=== PATIENT | male | born 1960 | race Caucasian/White ===

== ENCOUNTER 2016-12-18 09:18 | Emergency (ER) | payer OTHER ==
[~2016-12-18] VITALS: Wt 86.4 kg
[~2016-12-18 09:18] MED LIST: ACET500C5 PO; ALBU8.5H3 INH; ASPI81TA3 PO; ATOR40TA68 PO; BENA10TA48 PO; BUPR300T48 PO; FENO67CA PO; GENT5DRO28 RIGHT EYE; ISOS10TA2 PO; LORA10TA3 PO; METF1000 PO; METO-448 PO; NITR0.4T6 SL
[2016-12-18] MEDS ORDERED: BENZ100C70 PO (10:11)
[2016-12-18] MEDS ORDERED: ACET500C5 PO (10:11)
[2016-12-18] MEDS ORDERED: AZIT250T94 PO (10:11)
[2016-12-18] MEDS ORDERED: CETI10CA PO (10:11)
--- NOTE | 2016-12-18 10:20 | ERD ---
ER Documentation Chief Complaint Date/Time DATE: 12/18/16 TIME: 10:18 Chief Complaint cough, fever, runny nose, bodyaches, sweeney, fatigue HPI Patient is a 56-year-old male with a past medical history of diabetes, hypertension, CAD who presents to the ED with cough, runny nose, tactile fevers , congestion, body aches 1 week. Patient states that his roommate has had similar symptoms at home as well as his mom. Denies abdominal pain, nausea, vomiting or diarrhea. Has taken Tylenol for his symptoms. Denies leg pain or swelling. Denies recent travel or recent surgeries. Denies chest pain, shortness of breath or difficulty breathing. Denies headache or dizziness. No other complaints. ROS All systems reviewed and are negative except as per history of present illness. Medications Home Meds Active Scripts Cetirizine Hcl* (Zyrtec*) 10 Mg Capsule, 10 MG PO DAILY, #30 TAB.CHEW Prov:MARIANA PAREDES PA-C 12/18/16 Benzonatate* (Tessalon Perle*) 100 Mg Capsule, 100 MG PO Q8H Y for COUGH for 14 Days, CAP Prov:MARIANA PAREDES PA-C 12/18/16 Acetaminophen* (Tylophen*) 500 Mg Capsule, 1 CAP PO Q6H Y for PAIN AND OR ELEVATED TEMP, #20 CAP Prov:MARIANA PAREDES PA-C 12/18/16 Azithromycin* (Zithromax*) 250 Mg Tablet, 250 MG PO .ZPACK DIRECTED, #6 TAB TAKE 500 MG (2 TABS) THE FIRST DAY THEN 250 MG (1 TAB) DAYS 2-5 Prov:MARIANA PAREDES PA-C 12/18/16 Gentamicin Sulfate* (Gentafair* Ophth) 0.3% - 5 Ml Drops, 1 DROP RIGHT EYE Q4 for 7 Days, EA Prov:SHERICE SMITH PA-C 06/26/16 Acetaminophen* (Tylophen*) 500 Mg Capsule, 2 CAP PO Q8H Y for PAIN AND OR ELEVATED TEMP, #20 CAP Prov:FREYA LEONARD 04/15/16 Nitroglycerin* (Nitroglycerin* SL) 0.4 Mg Tab.subl, 0.4 MG SL Q5MIN Y for CHEST PAIN for 30 Days, BOTTLE Prov:HARSHAD DUMONT MD 05/04/15 Atorvastatin* (Atorvastatin*) 40 Mg Tablet, 40 MG PO HS for 30 Days, TAB Prov:HARSHAD DUMONT MD 05/04/15 Benazepril Hcl* (Benazepril Hcl*) 10 Mg Tab, 10 MG PO BID for 30 Days, TAB Prov:HARSHAD DUMONT MD 05/04/15 Isosorbide Dinitrate* (Isordil*) 10 Mg Tab, 10 MG PO TID for 30 Days, TAB Prov:HARSHAD DUMONT MD 05/04/15 Metoprolol Tartrate* (Lopressor*) 25 Mg Tab, 25 MG PO Q12 for 30 Days, TAB Prov:HARSHAD DUMONT MD 05/04/15 Reported Medications Metformin Hcl* (Metformin Hcl*) 1,000 Mg Tablet, 1000 MG PO BID, TAB 05/03/15 Bupropion Hcl* (Wellbutrin XL*) 300 Mg Tab.sr.24h, 300 MG PO QAM, TAB.SA 05/03/15 Fenofibrate, Micronized (Fenofibrate) 67 Mg Capsule, 67 MG PO DAILY, CAP 05/03/15 Loratadine* (Loratadine*) 10 Mg Tablet, 10 MG PO DAILY, TAB 11/15/14 Aspirin* (Aspirin* Chew) 81 Mg Tab.chew, 81 MG PO DAILY, TAB.CHEW 11/15/14 Albuterol Sulfate* (Proair HFA*) 8.5 Gm Hfa.aer.ad, 2 PUFF INH QID Y for WHEEZING AND SOB, INH 11/15/14 Allergies Allergies: Coded Allergies: ibuprofen (Verified Allergy, Unknown, 01/01/15) PMhx/Soc History of Surgery: Yes (UMBILICAL HERNIA REMOVAL, STENT PLACEMENT) Anesthesia Reaction: No Hx Neurological Disorder: No Hx Respiratory Disorders: Yes (BRONCHITIS) Hx Cardiac Disorders: Yes (CAD, ATHEROSCLEROSIS, HTN, HIGH CHOLESTEROL) Hx Psychiatric Problems: Yes (DEPRESSION, ANXIETY, ANGER MANAGEMENT) Hx Miscellaneous Medical Probl: No Hx Alcohol Use: Yes (JUNE 2014) Hx Substance Use: Yes (COCAINE AND [place] 2002) Hx Tobacco Use: Yes (QUIT YEARS AGO, CANNOT RECALL, ABOUT 20 YEARS) Smoking Status: Former smoker Physical Exam Vitals Vital Signs Date Time Temp Pulse Resp B/P Pulse Ox O2 Delivery O2 Flow Rate FiO2 12/18/16 09:24 98.8 75 20 141/83 98 Physical Exam GENERAL: Well-developed, well-nourished male. Appears in no acute distress. HEAD: Normocephalic, atraumatic. EYES: Pupils are equally reactive bilaterally. EOMs grossly intact. No conjunctival erythema. ENT: Moist mucous membranes. No uvula deviation. No kissing tonsils. No exudates. NECK: Supple. No lymphadenopathy or thyromegaly. No meningismus. negative kernig. negative brudinski. LUNG: Clear to auscultation bilaterally. No rhonchi, wheezing, rales or coarse breath sounds. HEART: Regular rate and rhythm. No murmurs, rubs or gallops. Extremities: Equal pulses bilaterally. No peripheral clubbing, cyanosis or edema. No unilateral leg swelling. Negative Homans sign NEUROLOGIC: Alert and oriented. Moving all four extremities. 5/5 strength in all extremities. Normal speech. Steady gait. SKIN: Normal color. Warm and dry. No rashes or lesions. Capillary refill < 2 seconds Procedures/MDM ER COURSE: I kept the patient and/or family informed of laboratory and diagnostic imaging results throughout the emergency room course. MEDICAL DECISION MAKING: This is a 56-year-old male with a past medical history of diabetes, hypertension , CAD who presents with cough, runny nose, congestion and body aches 1 week. Vital signs were reviewed. Patient is afebrile. Patient is not hypoxic. Patient is not toxic or ill-appearing. Patient likely has URI of viral etiology however due to his extensive past medical history I will be treating the patient with azithromycin. Low suspicion for pneumonia, PE, pneumothorax, ACS, epiglottitis, obstruction, TB, pertussis, meningitis, sepsis. Patient does not show signs of respiratory distress. DISCHARGE: At this time, patient is stable for discharge and outpatient management with no new complaints during the ER course. Patient was sent home with azithromycin, Tylenol for pain, Tessalon Perles for cough and Zyrtec. Patient will be discharged home with instructions to recheck for new or worsening symptoms such as fever, nausea, weakness, LOC and to follow up with primary care in the next 1 -2 days. Patient was advised to return to the ER for any new or worsening symptoms. Plan was discussed and patient and/or family understands and agrees. Home instructions were given. Departure Diagnosis: Primary Impression: Upper respiratory infection URI type: unspecified URI Qualified Code: J06.9 - Upper respiratory tract infection, unspecified type Condition: Stable Patient Instructions: Preventing Common Respiratory Infections Additional Instructions: Call your primary care doctor TOMORROW for an appointment during the next 1-2 days.See the doctor sooner or return here if your condition worsens before your appointment time. MARIANA PAREDES PA-C Dec 18, 2016 10:20
== END 2016-12-18 10:20 | disposition home or self-care (01) ==
LOC: FTE 09:18
DX: J06.9 Acute upper respiratory infection, unspecified (principal); I10 Essential (primary) hypertension; E11.9 Type 2 diabetes mellitus without complications; I25.10 Atherosclerotic heart disease of native coronary artery without angina pectoris; Z79.82 Long term (current) use of aspirin; Z79.84 Long term (current) use of oral hypoglycemic drugs; Z87.891 Personal history of nicotine dependence
CPT/HCPCS: 99284

== ENCOUNTER 2017-06-30 10:30 | Emergency (ER) | payer OTHER ==
[~2017-06-30] VITALS: Ht 170.2 cm; Wt 93.5 kg
[~2017-06-30 10:30] MED LIST changes: +AZIT250T94 PO; +BENZ100C70 PO; +CETI10CA PO; +NITR0.4T32 SL; -NITR0.4T6 SL
[2017-06-30 10:54] VITALS: Ht 170.2 cm; Wt 93.5 kg
[2017-06-30] MEDS ORDERED: ONDANSETRON 4 MG INJ IV STA (11:22)
[2017-06-30] MEDS ORDERED: SOD CHLORIDE 0.9% 500 ML IV STA (11:22)
[2017-06-30] MEDS ORDERED: HYDROmorphONE 1 MG/ML SYG IV STA (11:22)
--- NOTE | 2017-06-30 12:06 | RADRPT ---
PROCEDURE: CT Abdomen and Pelvis without contrast CLINICAL INDICATION: Hematuria and pain extending the pelvic area history of stones TECHNIQUE: Transaxial images were obtained through the abdomen and pelvis on a multi-slice scanner without the intravenous contrast administration. No oral contrast had previously been given. Sagit norbert and coronal re-formations were subsequently reconstructed. One or more of the following dose reduction techniques were used: - Automated exposure control. - Adjustment of the mA and/or kV according to patient size. - Use of iterative reconstruction technique. Radiation dose: CTDIvol = 46.82 mGy; DLP = 1442.71 mGy-cm. COMPARISON: No prior studies are available for comparison. FINDINGS: Lung bases: The visualized lung bases appear unremarkable. Liver: The liver has become mildly enlarged. Too small calcified granulomata are again seen within t he anterior right lobe. No other focal lesion is evident. Gallbladder: The wall is not thickened. No radiopaque stones are identified. Bile ducts: The intra and extrahepatic bile ducts are normal in caliber. Pancreas: Appears normal with no mass or inflammation evident. Spleen: Normal in size with no focal lesion. Adrenals: Normal with no mass identified. Kidneys, ureters and bladder: A 2 mm nonobstructing nephrolith is seen at the superior pole of the r ight kidney. The other nonobstructing nephrolith seen at the previous study are no longer identified . There is mild perinephric stranding but there is no evidence of right urinary outflow obstruction and the right ureter appears normal. Within the left kidney, a 4 mm nonobstructing nephrolith is see n within the superior pole, a 1 mm nonobstructing nephrolith is seen in the mid pole and too nonobst ructing nephroliths are seen within the inferior pole the largest of which measures 4.5 mm. There is mild perinephric stranding but no mass or hydronephrosis is evident. The left ureter appears normal . Within the right posterior bladder a 5 mm stone is now evident. This lies near the ureterovesicula r junction and either represents a stone that has passed into the bladder or possibly a nonobstructi ng stone in a distal right ureterocele. This was not evident previously. Reproductive organs: The prostate is not grossly enlarged but contains calcification. Stomach and bowel: The stomach appears unremarkable. There are a few diverticuli within the sigmoid colon but there is no evidence of bowel obstruction or inflammation. Appendix: A normal vermiform appendix is evident. Peritoneum: No free intraperitoneal fluid or air is identified. There are again small fat containing inguinal hernias. Aorta: Normal in caliber with no aneurysmal dilatation. IVC: The vena cava appears slightly flattened which can be seen in hypovolemia or hypotension. Lymph nodes: No pathologically enlarged nodes are identified. Osseous structures: Moderate diffuse degenerative spine changes are again noted. There is bilateral spondylolysis at L5 not associated with significant spondylolisthesis. IMPRESSION: 1. Since the previous CT of 04/15/2016, there are is again bilateral nephrolithiasis, decreased on the right and slightly increased on the left. There is mild perinephric stranding but there is no ev idence of urinary outflow obstruction or ureteral dilatation. There is a new 5 mm calcification seen within the right posterior bladder near the right ureterovesicular junction that either represents a stone that is passed into the bladder or possibly a nonobstructing stone within a right ureterocel e. 2. There are a few diverticuli within the sigmoid colon but there is no evidence of bowel obstructi on or inflammation with a normal vermiform appendix evident. 3. There is no free intraperitoneal fluid or air. Small bilateral fat containing inguinal hernias a re again evident. 4. The liver is mildly enlarged and to calcified granulomata are again seen within the right lobe. 5. Moderate diffuse degenerative spine changes are again evident with bilateral spondylolysis at L5 . Physician Jose Date Time Electronically viewed and signed by Physician Jose on 06/30/2017 12:06 /
[2017-06-30 12:12] LABS: BASOPHILS % 0.7 % (0.0-2.0); EOSINOPHILS # 0.2 10^3/ul (0.0-0.5); EOSINOPHILS % 2.5 % (0.0-7.0); HEMATOCRIT 40.4 % (42.0-52.0); HEMOGLOBIN 13.9 g/dl (14.0-18.0); LYMPHOCYTES # 1.9 10^3/ul (0.8-2.9); LYMPHOCYTES % 31.3 % (15.0-51.0); MEAN CORPUSCULAR HGB CONC 34.4 g/dl (32.0-37.0); MEAN CORPUSCULAR VOLUME 93.1 fl (82.0-101.0); MEAN PLATELET VOLUME 10.1 fl (7.4-10.4); MONOCYTE # 0.6 10^3/ul (0.3-0.9); MONOCYTES % 10.7 % (0.0-11.0); NEUTROPHIL # 3.2 10^3/ul (1.6-7.5); NEUTROPHILS % 54.1 % (39.0-77.0); PLATELET COUNT 174 10^3/UL (140-415); RED BLOOD COUNT 4.34 10^6/ul (4.70-6.10); RED CELL DISTRIBUTION WIDTH 13.6 % (11.5-14.5); WHITE BLOOD COUNT 5.9 10^3/ul (4.8-10.8)
[2017-06-30 12:35] LABS: ALBUMIN 4.2 g/dl (3.3-4.9); ALBUMIN/GLOBULIN RATIO 1.44; BILIRUBIN,INDIRECT 0.3 mg/dl (0-1.1); BILIRUBIN,TOTAL 0.3 mg/dl (0.2-1.3); CALCIUM 9.1 mg/dl (8.4-10.2); CREATININE 0.92 mg/dl (0.61-1.24); POTASSIUM 4.5 mmol/L (3.5-5.1); TOTAL PROTEIN 7.1 g/dl (6.1-8.1)
[2017-06-30] MEDS ORDERED: CIPR500T4 PO (14:32)
[2017-06-30] MEDS ORDERED: HYDR-902 PO (14:32)
[2017-06-30] MEDS ORDERED: TAMS-14 PO (14:32)
--- NOTE | 2017-06-30 14:39 | ERD ---
ER Documentation Chief Complaint Chief Complaint AP X1 WK, BLOOD IN URINE [id number] HPI This is a 57 show male with a history of multiple kidney stones complain of the kidney stone pain has had in the past which is left flank pain in the left lower quadrant. The pain is often on an intermittent for the past 6 days. The patient says it feels like his kidney stones. He has had off-and-on hematuria but no fever no dysuria no nausea vomiting fever. ROS All systems reviewed and are negative except as per history of present illness. Medications Home Meds Active Scripts Hydrocodone/Acetaminophen ([place] 10-325 Tablet) 1 Each Tablet, 1 TAB PO Q6H Y for PAIN, #20 TAB Prov:FLOWER GOMESSTOLOS A. DO 06/30/17 Tamsulosin Hcl* (Flomax*) 0.4 Mg Cap.er.24h, 0.4 MG PO QPM, #7 CAP Prov:FLOWER GOMESSTOLOS A. DO 06/30/17 Ciprofloxacin Hcl* (Ciprofloxacin Hcl*) 500 Mg Tablet, 500 MG PO BID for 10 Days , TAB Prov:FLOWER GOMESSTOLOS A. DO 06/30/17 Cetirizine Hcl* (Zyrtec*) 10 Mg Capsule, 10 MG PO DAILY, #30 TAB.CHEW Prov:MARIANA PAREDES PA-C 12/18/16 Benzonatate* (Tessalon Perle*) 100 Mg Capsule, 100 MG PO Q8H Y for COUGH for 14 Days, CAP Prov:MARIANA PAREDES-C 12/18/16 Acetaminophen* (Tylophen*) 500 Mg Capsule, 1 CAP PO Q6H Y for PAIN AND OR ELEVATED TEMP, #20 CAP Prov:MARIANA PAREDES-C 12/18/16 Azithromycin* (Zithromax*) 250 Mg Tablet, 250 MG PO .KaitlinPACK DIRECTED, #6 TAB TAKE 500 MG (2 TABS) THE FIRST DAY THEN 250 MG (1 TAB) DAYS 2-5 Prov:MARIANA PAREDES-C 12/18/16 Gentamicin Sulfate* (Gentafair* Ophth) 0.3% - 5 Ml Drops, 1 DROP RIGHT EYE Q4 for 7 Days, EA Prov:SHERICE SMITH PA-C 06/26/16 Acetaminophen* (Tylophen*) 500 Mg Capsule, 2 CAP PO Q8H Y for PAIN AND OR ELEVATED TEMP, #20 CAP Prov:FREYA LEONARD 04/15/16 Nitroglycerin* (Nitroglycerin* SL) 0.4 Mg Tab.subl, 0.4 MG SL Q5MIN Y for CHEST PAIN for 30 Days, BOTTLE Prov:HARSHAD DUMONT MD 05/04/15 Atorvastatin* (Atorvastatin*) 40 Mg Tablet, 40 MG PO HS for 30 Days, TAB Prov:HARSHAD DUMONT MD 05/04/15 Benazepril Hcl* (Benazepril Hcl*) 10 Mg Tab, 10 MG PO BID for 30 Days, TAB Prov:HARSHAD DUMONT MD 05/04/15 Isosorbide Dinitrate* (Isordil*) 10 Mg Tab, 10 MG PO TID for 30 Days, TAB Prov:HARSHAD DUMONT MD 05/04/15 Metoprolol Tartrate* (Lopressor*) 25 Mg Tab, 25 MG PO Q12 for 30 Days, TAB Prov:HARSHAD DUMONT MD 05/04/15 Reported Medications Metformin Hcl* (Metformin Hcl*) 1,000 Mg Tablet, 1000 MG PO BID, TAB 05/03/15 Bupropion Hcl* (Wellbutrin XL*) 300 Mg Tab.sr.24h, 300 MG PO QAM, TAB.SA 05/03/15 Fenofibrate, Micronized (Fenofibrate) 67 Mg Capsule, 67 MG PO DAILY, CAP 05/03/15 Loratadine* (Loratadine*) 10 Mg Tablet, 10 MG PO DAILY, TAB 11/15/14 Aspirin* (Aspirin* Chew) 81 Mg Tab.chew, 81 MG PO DAILY, TAB.CHEW 11/15/14 Albuterol Sulfate* (Proair HFA*) 8.5 Gm Hfa.aer.ad, 2 PUFF INH QID Y for WHEEZING AND SOB, INH 11/15/14 Allergies Allergies: Coded Allergies: ibuprofen (Verified Allergy, Unknown, 01/01/15) PMhx/Soc History of Surgery: Yes (UMBILICAL HERNIA REMOVAL, STENT PLACEMENT) Anesthesia Reaction: No Hx Neurological Disorder: No Hx Respiratory Disorders: Yes (BRONCHITIS) Hx Cardiac Disorders: Yes (CAD, ATHEROSCLEROSIS, HTN, HIGH CHOLESTEROL) Hx Psychiatric Problems: Yes (DEPRESSION, ANXIETY, ANGER MANAGEMENT) Hx Miscellaneous Medical Probl: No Hx Alcohol Use: No Hx Substance Use: No Hx Tobacco Use: Yes (QUIT YEARS AGO, CANNOT RECALL, ABOUT 20 YEARS) Smoking Status: Former smoker FmHx Family History: No coronary disease Physical Exam Vitals Vital Signs Date Time Temp Pulse Resp B/P Pulse Ox O2 Delivery O2 Flow Rate FiO2 06/30/17 10:54 98.7 70 18 142/81 97 Physical Exam Const: Well-developed, well-nourished Head: Atraumatic, normocephalic Eyes: Normal Conjunctiva, PERRLA, EOMI, normal sclera, no nystagmus ENT: Normal External Ears, Nose and Mouth, moist mucus membranes. Neck: Full range of motion. No meningismus, no lymphadenopathy. Resp: Clear to auscultation bilaterally, no wheezing, rhonchi, rales Cardio: Regular rate and rhythm, no murmurs, S1 S2 present Abd: Soft, non tender x 4, non distended. Normal bowel sounds, no guarding or rebound, no pulsitile abdominal masses or bruits Skin: No petechiae or rashes, no ecchymosis , no maculopapular rash Back: Mild left flank tenderness Ext: No cyanosis, or edema, FROM x 4, normal inspection, neurovascularly intact x 4 Neur: Awake and alert, STR 5/5 x 4, sensation intact x 4, no focal findings, cerebellum intact Psych: Normal Mood and Affect Result Diagram: 06/30/17 1200 06/30/17 1200 Results 24 hrs Laboratory Tests Test 06/30/17 12:00 White Blood Count 5.910^3/ul Red Blood Count 4.3410^6/ul Hemoglobin 13.9g/dl Hematocrit 40.4% Mean Corpuscular Volume 93.1fl Mean Corpuscular Hemoglobin 32.0pg Mean Corpuscular Hemoglobin Concent 34.4g/dl Red Cell Distribution Width 13.6% Platelet Count 94459^3/UL Mean Platelet Volume 10.1fl Neutrophils % 54.1% Lymphocytes % 31.3% Monocytes % 10.7% Eosinophils % 2.5% Basophils % 0.7% Nucleated Red Blood Cells % 0.0/100WBC Neutrophils # 3.210^3/ul Lymphocytes # 1.910^3/ul Monocytes # 0.610^3/ul Eosinophils # 0.210^3/ul Basophils # 0.010^3/ul Nucleated Red Blood Cells # 0.010^3/ul Sodium Level 144mmol/L Potassium Level 4.5mmol/L Chloride Level 109mmol/L Carbon Dioxide Level 25mmol/L Anion Gap 15 Blood Urea Nitrogen 14mg/dl Creatinine 0.92mg/dl Glucose Level 130mg/dl Calcium Level 9.1mg/dl Total Bilirubin 0.3mg/dl Direct Bilirubin 0.00mg/dl Indirect Bilirubin 0.3mg/dl Aspartate Amino Transf (AST/SGOT) 40IU/L Alanine Aminotransferase (ALT/SGPT) 60IU/L Alkaline Phosphatase 79IU/L Total Protein 7.1g/dl Albumin 4.2g/dl Globulin 2.90g/dl Albumin/Globulin Ratio 1.44 Current Medications Medications (Trade) Dose Ordered Sig/Chong Route PRN Reason Start Time Stop Time Status Last Admin Dose Admin Sodium Chloride (NS) 500 ml @ 500 mls/hr Q1H STAT IV 06/30/17 11:22 06/30/17 12:21 DC 06/30/17 12:13 Hydromorphone HCl (Dilaudid) 1 mg ONCE STAT IV 06/30/17 11:22 06/30/17 11:28 DC 06/30/17 12:13 Ondansetron HCl (Zofran Inj) 4 mg ONCE STAT IV 06/30/17 11:22 06/30/17 11:28 DC 06/30/17 12:13 Procedures/MDM PROCEDURE: CT Abdomen and Pelvis without contrast CLINICAL INDICATION: Hematuria and pain extending the pelvic area history of stones TECHNIQUE: Transaxial images were obtained through the abdomen and pelvis on a multi-slice scanner without the intravenous contrast administration. No oral contrast had previously been given. Sagittal and coronal re-formations were subsequently reconstructed. One or more of the following dose reduction techniques were used: - Automated exposure control. - Adjustment of the mA and/or kV according to patient size. - Use of iterative reconstruction technique. Radiation dose: CTDIvol = 46.82 mGy; DLP = 1442.71 mGy-cm. COMPARISON: No prior studies are available for comparison. FINDINGS: Lung bases: The visualized lung bases appear unremarkable. Liver: The liver has become mildly enlarged. Too small calcified granulomata are again seen within the anterior right lobe. No other focal lesion is evident. Gallbladder: The wall is not thickened. No radiopaque stones are identified. Bile ducts: The intra and extrahepatic bile ducts are normal in caliber. Pancreas: Appears normal with no mass or inflammation evident. Spleen: Normal in size with no focal lesion. Adrenals: Normal with no mass identified. Kidneys, ureters and bladder: A 2 mm nonobstructing nephrolith is seen at the superior pole of the right kidney. The other nonobstructing nephrolith seen at the previous study are no longer identified. There is mild perinephric stranding but there is no evidence of right urinary outflow obstruction and the right ureter appears normal. Within the left kidney, a 4 mm nonobstructing nephrolith is seen within the superior pole, a 1 mm nonobstructing nephrolith is seen in the mid pole and too nonobstructing nephroliths are seen within the inferior pole the largest of which measures 4.5 mm. There is mild perinephric stranding but no mass or hydronephrosis is evident. The left ureter appears normal. Within the right posterior bladder a 5 mm stone is now evident. This lies near the ureterovesicular junction and either represents a stone that has passed into the bladder or possibly a nonobstructing stone in a distal right ureterocele. This was not evident previously. Reproductive organs: The prostate is not grossly enlarged but contains calcification. Stomach and bowel: The stomach appears unremarkable. There are a few diverticuli within the sigmoid colon but there is no evidence of bowel obstruction or inflammation. Appendix: A normal vermiform appendix is evident. Peritoneum: No free intraperitoneal fluid or air is identified. There are again small fat containing inguinal hernias. Aorta: Normal in caliber with no aneurysmal dilatation. IVC: The vena cava appears slightly flattened which can be seen in hypovolemia or hypotension. Lymph nodes: No pathologically enlarged nodes are identified. Osseous structures: Moderate diffuse degenerative spine changes are again noted. There is bilateral spondylolysis at L5 not associated with significant spondylolisthesis. IMPRESSION: 1. Since the previous CT of 04/15/2016, there are is again bilateral nephrolithiasis, decreased on the right and slightly increased on the left. There is mild perinephric stranding but there is no evidence of urinary outflow obstruction or ureteral dilatation. There is a new 5 mm calcification seen within the right posterior bladder near the right ureterovesicular junction that either represents a stone that is passed into the bladder or possibly a nonobstructing stone within a right ureterocele. 2. There are a few diverticuli within the sigmoid colon but there is no evidence of bowel obstruction or inflammation with a normal vermiform appendix evident. 3. There is no free intraperitoneal fluid or air. Small bilateral fat containing inguinal hernias are again evident. 4. The liver is mildly enlarged and to calcified granulomata are again seen within the right lobe. 5. Moderate diffuse degenerative spine changes are again evident with bilateral spondylolysis at L5. Physician Jose Date Time Electronically viewed and signed by Physician Jose on 06/30/2017 12:06 RH/ CC: CAMPBELL GOMES DO Patient does not have any acute pathology in the ureters but looks like he may have passed a stone in the bladder. He is pain-free now. We will cover him with Cipro Flomax and pain control. Departure Diagnosis: Primary Impression: Kidney stone Condition: Stable Patient Instructions: Kidney Carolina Brooks APOSTOLOS A. DO Jun 30, 2017 14:39
[2017-06-30 14:48] VITALS: BP 138/80; PULSE 77; RESP 18
[2017-06-30 15:20] LABS: ADD UMIC YES; UR ASCORBIC ACID NEGATIVE (NEGATIVE); UR BILIRUBIN (Dip) NEGATIVE (NEGATIVE); UR BLOOD (Dip) 3+ mg/dL (NEGATIVE); UR CLARITY CLEAR (CLEAR); UR COLOR YELLOW (YELLOW); UR GLUCOSE (Dip) 1+ mg/dL (NEGATIVE); UR KETONES (Dip) NEGATIVE (NEGATIVE); UR LEUKOCYTE ESTERASE (Dip) NEGATIVE Leu/ul (NEGATIVE); UR NITRITE (Dip) NEGATIVE (NEGATIVE); UR RBC 122 /HPF (0-5); UR SPECIFIC GRAVITY (Dip) 1.016 (1.003-1.030); UR TOTAL PROTEIN (Dip) NEGATIVE (NEGATIVE); UR UROBILINOGEN (Dip) NEGATIVE (NEGATIVE)
== END 2017-06-30 14:51 | disposition home or self-care (01) ==
LOC: E/R 10:30
DX: N20.0 Calculus of kidney (principal); I25.10 Atherosclerotic heart disease of native coronary artery without angina pectoris; I10 Essential (primary) hypertension; Z79.82 Long term (current) use of aspirin; Z79.84 Long term (current) use of oral hypoglycemic drugs; Z87.891 Personal history of nicotine dependence; Z98.61 Coronary angioplasty status
CPT/HCPCS: 36415; 74176; 80053; 81001; 85025; 96374; 96375; J1170; J2405; J7040; Z7502

== ENCOUNTER 2017-08-23 10:41 | Emergency (ER) | payer MEDICAID, OTHER ==
[~2017-08-23] VITALS: Ht 172.7 cm; Wt 90.7 kg
[~2017-08-23 10:41] MED LIST changes: +CIPR500T4 PO; +HYDR-902 PO; +TAMS-14 PO
[2017-08-23 10:42] VITALS: Ht 172.7 cm; Wt 90.7 kg
[2017-08-23 14:02] LABS: BASOPHILS % 0.6 % (0.0-2.0); EOSINOPHILS % 0.3 % (0.0-7.0); HEMATOCRIT 43.4 % (42.0-52.0); HEMOGLOBIN 15.2 g/dl (14.0-18.0); LYMPHOCYTES # 1.1 10^3/ul (0.8-2.9); LYMPHOCYTES % 32.7 % (15.0-51.0); MEAN CORPUSCULAR HEMOGLOBIN 32.5 pg (29.0-33.0); MEAN CORPUSCULAR VOLUME 92.7 fl (82.0-101.0); MEAN PLATELET VOLUME 9.6 fl (7.4-10.4); MONOCYTE # 0.5 10^3/ul (0.3-0.9); MONOCYTES % 14.3 % (0.0-11.0); NEUTROPHIL # 1.8 10^3/ul (1.6-7.5); NEUTROPHILS % 51.8 % (39.0-77.0); PLATELET COUNT 174 10^3/UL (140-415); RED BLOOD COUNT 4.68 10^6/ul (4.70-6.10); RED CELL DISTRIBUTION WIDTH 12.6 % (11.5-14.5); WHITE BLOOD COUNT 3.4 10^3/ul (4.8-10.8)
[2017-08-23 14:05] LABS: ADD UMIC NO; UR ASCORBIC ACID 40 mg/dL (NEGATIVE); UR BILIRUBIN (Dip) NEGATIVE (NEGATIVE); UR BLOOD (Dip) NEGATIVE (NEGATIVE); UR CLARITY CLEAR (CLEAR); UR COLOR AMBER (YELLOW); UR GLUCOSE (Dip) 2+ mg/dL (NEGATIVE); UR KETONES (Dip) TRACE mg/dL (NEGATIVE); UR LEUKOCYTE ESTERASE (Dip) NEGATIVE Leu/ul (NEGATIVE); UR NITRITE (Dip) NEGATIVE (NEGATIVE); UR SPECIFIC GRAVITY (Dip) 1.031 (1.003-1.030); UR TOTAL PROTEIN (Dip) NEGATIVE (NEGATIVE); UR UROBILINOGEN (Dip) 1+ mg/dL (NEGATIVE)
[2017-08-23 14:20] LABS: ALBUMIN 4.3 g/dl (3.3-4.9); ALBUMIN/GLOBULIN RATIO 1.22; BILIRUBIN,INDIRECT 0.3 mg/dl (0-1.1); BILIRUBIN,TOTAL 0.3 mg/dl (0.2-1.3); CALCIUM 9.3 mg/dl (8.4-10.2); CREATININE 0.94 mg/dl (0.61-1.24); POTASSIUM 3.8 mmol/L (3.5-5.1); TOTAL PROTEIN 7.8 g/dl (6.1-8.1)
--- NOTE | 2017-08-23 14:31 | RADRPT ---
PROCEDURE: XR Chest. CLINICAL INDICATION: Cough TECHNIQUE: A single portable view of the chest was obtained. COMPARISON: 04/15/2016 FINDINGS: The cardiomediastinal silhouette is within normal limits. The lungs and pleural spaces are clear. The soft tissues and osseous structures are stable. IMPRESSION: No acute cardiopulmonary disease. RPTAT: HPNM Physician Shahla Date Time Electronically viewed and signed by Mingo Manning Physician on 08/23/2017 14:30 /
[2017-08-23] MEDS ORDERED: ACET500C5 PO (14:37)
[2017-08-23] MEDS ORDERED: GUAI-637 PO (14:37)
[2017-08-23] MEDS ORDERED: SODI126M NASAL (14:37)
--- NOTE | 2017-08-23 14:46 | ERD ---
ER Documentation Chief Complaint Chief Complaint fever , cough , bodyache x 3 days HPI 57-year-old male with history of diabetes and hypertension presented ED complaining of subjective fever, cough, runny nose, and body ache 3 days. Cough is nonproductive, worse at night. Patient reports pain in the bilateral lower ribs region when he is taking a deep breath. Patient also reports feeling chills, headache and nausea. Denies abdominal pain, vomiting, or diarrhea. Denies shortness of breath. Denies chest pain. ROS All systems reviewed and are negative except as per history of present illness. Medications Home Meds Active Scripts Guaifenesin* (Robitussin*) 100 Mg/5 Ml Syrup, 200 MG PO Q4H Y for COUGH, #120 ML Prov:TRENT RUBIN. APPLICATION DEVELOPMENT CONSULTANT 08/23/17 Sodium Chloride (Saline Nasal Mist) 126 Ml Mist, 2 SPRAY NASAL Q2H Y for NASAL CONGESTION, #1 BOTTLE Prov:TRENT RUBIN. BABAK 08/23/17 Acetaminophen* (Tylophen*) 500 Mg Capsule, 1 CAP PO Q6H Y for PAIN AND OR ELEVATED TEMP, #20 CAP Prov:TRENT RUBIN NP 08/23/17 Hydrocodone/Acetaminophen (Dane 10-325 Tablet) 1 Each Tablet, 1 TAB PO Q6H Y for PAIN, #20 TAB Prov:CAMPBELL GOMES DO 06/30/17 Tamsulosin Hcl* (Flomax*) 0.4 Mg Cap.er.24h, 0.4 MG PO QPM, #7 CAP Prov:CAMPBELL GOMES DO 06/30/17 Ciprofloxacin Hcl* (Ciprofloxacin Hcl*) 500 Mg Tablet, 500 MG PO BID for 10 Days , TAB Prov:CAMPBELL GOMES DO 06/30/17 Cetirizine Hcl* (Zyrtec*) 10 Mg Capsule, 10 MG PO DAILY, #30 TAB.CHEW Prov:MARIANA PAREDES-C 12/18/16 Benzonatate* (Tessalon Perle*) 100 Mg Capsule, 100 MG PO Q8H Y for COUGH for 14 Days, CAP Prov:MARIANA PAREDES-C 12/18/16 Acetaminophen* (Tylophen*) 500 Mg Capsule, 1 CAP PO Q6H Y for PAIN AND OR ELEVATED TEMP, #20 CAP Prov:MARIANA PAREDESC 12/18/16 Azithromycin* (Zithromax*) 250 Mg Tablet, 250 MG PO .JULIANA DIRECTED, #6 TAB TAKE 500 MG (2 TABS) THE FIRST DAY THEN 250 MG (1 TAB) DAYS 2-5 Prov:MARIANA PAREDESC 12/18/16 Gentamicin Sulfate* (Gentafair* Ophth) 0.3% - 5 Ml Drops, 1 DROP RIGHT EYE Q4 for 7 Days, EA Prov:SHERICE SMITHC 06/26/16 Acetaminophen* (Tylophen*) 500 Mg Capsule, 2 CAP PO Q8H Y for PAIN AND OR ELEVATED TEMP, #20 CAP Prov:FREYA LEONARD 04/15/16 Nitroglycerin* (Nitroglycerin* SL) 0.4 Mg Tab.subl, 0.4 MG SL Q5MIN Y for CHEST PAIN for 30 Days, BOTTLE Prov:HARSHAD DUMONT MD 05/04/15 Atorvastatin* (Atorvastatin*) 40 Mg Tablet, 40 MG PO HS for 30 Days, TAB Prov:HARSHAD DUMONT MD 05/04/15 Benazepril Hcl* (Benazepril Hcl*) 10 Mg Tab, 10 MG PO BID for 30 Days, TAB Prov:HARSHAD DUMONT MD 05/04/15 Isosorbide Dinitrate* (Isordil*) 10 Mg Tab, 10 MG PO TID for 30 Days, TAB Prov:HARSHAD DUMONT MD 05/04/15 Metoprolol Tartrate* (Lopressor*) 25 Mg Tab, 25 MG PO Q12 for 30 Days, TAB Prov:HARSHAD DUMONT MD 05/04/15 Reported Medications Metformin Hcl* (Metformin Hcl*) 1,000 Mg Tablet, 1000 MG PO BID, TAB 05/03/15 Bupropion Hcl* (Wellbutrin XL*) 300 Mg Tab.sr.24h, 300 MG PO QAM, TAB.SA 05/03/15 Fenofibrate, Micronized (Fenofibrate) 67 Mg Capsule, 67 MG PO DAILY, CAP 05/03/15 Loratadine* (Loratadine*) 10 Mg Tablet, 10 MG PO DAILY, TAB 3/10/15 Aspirin* (Aspirin* Chew) 81 Mg Tab.chew, 81 MG PO DAILY, TAB.CHEW 11/15/14 Albuterol Sulfate* (Proair HFA*) 8.5 Gm Hfa.aer.ad, 2 PUFF INH QID Y for WHEEZING AND SOB, INH 11/15/14 Allergies Allergies: Coded Allergies: ibuprofen (Verified Allergy, Unknown, 08/23/17) PMhx/Soc History of Surgery: Yes (UMBILICAL HERNIA REMOVAL, STENT PLACEMENT) Anesthesia Reaction: No Hx Neurological Disorder: No Hx Respiratory Disorders: Yes (BRONCHITIS) Hx Cardiac Disorders: Yes (CAD, ATHEROSCLEROSIS, HTN, HIGH CHOLESTEROL) Hx Psychiatric Problems: Yes (DEPRESSION, ANXIETY, ANGER MANAGEMENT) Hx Miscellaneous Medical Probl: No Hx Alcohol Use: No Hx Substance Use: No Hx Tobacco Use: Yes (QUIT YEARS AGO, CANNOT RECALL, ABOUT 20 YEARS) Smoking Status: Former smoker Physical Exam Vitals Vital Signs Date Time Temp Pulse Resp B/P Pulse Ox O2 Delivery O2 Flow Rate FiO2 08/23/17 10:42 99.8 102 18 119/80 99 Physical Exam General: Well-developed, well-nourished, conscious and coherent, in no distress Skin: Warm and dry without rash, good texture and turgor Head: Normocephalic without evidence of trauma Eyes: Sclera and conjunctivae normal; pupils equal, round, and reactive to light; extraocular movements are intact Nose/Face: Clear rhinorrhea Mouth/throat: Mucous membranes are moist. Posterior pharynx clear without erythema or exudates Neck: Supple without meningismus or adenopathy. Carotids are equal. Trachea midline. No bruits or JVD Chest: Normal AP diameter. Good expansion without retractions. Nontender. Lungs are clear to auscultate bilaterally with good tidal volume Heart: Regular rate and rhythm. No murmur, rub, or gallops heard Abdomen: Soft and nontender without masses, guarding, or rebound. Bowel sounds are active. No hepatosplenomegaly Back: Without spinal or CVA tenderness Pelvis: Nontender to palpation and stable to compression Extremities: Full range of motion. Good strength bilaterally. No clubbing, cyanosis, or edema. Peripheral pulses are intact. Sensation intact Neuro: Alert and oriented 4, GCS 15. Cranial nerves grossly intact. Motor and sensory exams nonfocal. Moves all extremities. Speech clear. Gait normal Result Diagram: 08/23/17 1352 08/23/17 1352 Results 24 hrs Laboratory Tests Test 08/23/17 13:40 08/23/17 13:52 Urine Color JOVITA Urine Clarity CLEAR Urine pH 5.0 Urine Specific [place] 1.031 Urine Ketones TRACEmg/dL Urine Nitrite NEGATIVEmg/dL Urine Bilirubin NEGATIVEmg/dL Urine Urobilinogen 1+mg/dL Urine Leukocyte Esterase NEGATIVELeu/ul Urine Hemoglobin NEGATIVEmg/dL Urine Glucose 2+mg/dL Urine Total Protein NEGATIVEmg/dl White Blood Count 3.410^3/ul Red Blood Count 4.6810^6/ul Hemoglobin 15.2g/dl Hematocrit 43.4% Mean Corpuscular Volume 92.7fl Mean Corpuscular Hemoglobin 32.5pg Mean Corpuscular Hemoglobin Concent 35.0g/dl Red Cell Distribution Width 12.6% Platelet Count 44704^3/UL Mean Platelet Volume 9.6fl Neutrophils % 51.8% Lymphocytes % 32.7% Monocytes % 14.3% Eosinophils % 0.3% Basophils % 0.6% Nucleated Red Blood Cells % 0.0/100WBC Neutrophils # 1.810^3/ul Lymphocytes # 1.110^3/ul Monocytes # 0.510^3/ul Eosinophils # 0.010^3/ul Basophils # 0.010^3/ul Nucleated Red Blood Cells # 0.010^3/ul Sodium Level 138mmol/L Potassium Level 3.8mmol/L Chloride Level 100mmol/L Carbon Dioxide Level 27mmol/L Anion Gap 15 Blood Urea Nitrogen 14mg/dl Creatinine 0.94mg/dl Glucose Level 252mg/dl Calcium Level 9.3mg/dl Total Bilirubin 0.3mg/dl Direct Bilirubin 0.00mg/dl Indirect Bilirubin 0.3mg/dl Aspartate Amino Transf (AST/SGOT) 84IU/L Alanine Aminotransferase (ALT/SGPT) 94IU/L Alkaline Phosphatase 59IU/L Total Protein 7.8g/dl Albumin 4.3g/dl Globulin 3.50g/dl Albumin/Globulin Ratio 1.22 Procedures/MDM 57-year-old male with history of diabetes presented to ED with flulike symptoms. CBC, CMP, and UA are negative except for blood glucose of 252. Patient does not have any abdominal pain or vomiting. Low suspicion for diabetic ketoacidosis. Chest rate is negative for acute cardiopulmonary processes. I doubt pneumonia. Influenza swab negative. Patient is afebrile, in no respiratory distress. Lungs are clear to auscultate. I doubt bronchitis. Likely patient's symptoms are result of viral upper respiratory infection. Patient appears well, stable for discharge and outpatient management. Medical decision making shared with patient and family. Education provided to patient and family. Patient and family expressed understanding of the plan. Medications on discharge: Tylenol, saline nasal spray, Robitussin. Follow-up: Primary care provider in 2-3 days or return to ED if worse. Disclaimer: Inadvertent spelling and grammatical errors are likely due to EHR/ dictation software use and do not reflect on the overall quality of patient care. Also, please note that the electronic time recorded on this note does not necessarily reflect the actual time of the patient encounter. Departure Diagnosis: Primary Impression: Upper respiratory infection URI type: acute nasopharyngitis (common cold) Qualified Code: J00 - Acute nasopharyngitis Condition: Stable Patient Instructions: Kid Care: Colds Referrals: JOHNNA HOPE (PCP) Additional Instructions: Call your primary care doctor TOMORROW for an appointment during the next 2-3 days.See the doctor sooner or return here if your condition worsens before your appointment time. TRENT RUBIN NP Aug 23, 2017 14:46
[2017-08-23 14:50] VITALS: BP 138/86; PULSE 77; RESP 19; TEMP 98.3
== END 2017-08-23 14:51 | disposition home or self-care (01) ==
LOC: FTE 10:41
DX: J00 Acute nasopharyngitis [common cold] (principal); E11.9 Type 2 diabetes mellitus without complications; I10 Essential (primary) hypertension; I25.10 Atherosclerotic heart disease of native coronary artery without angina pectoris; Z79.84 Long term (current) use of oral hypoglycemic drugs; Z98.61 Coronary angioplasty status; Z87.891 Personal history of nicotine dependence; Z79.82 Long term (current) use of aspirin
CPT/HCPCS: 36415; 71010; 80053; 81003; 85025; 87400; Z7502

== ENCOUNTER 2018-03-09 17:19 | Inpatient (IN) | END 2018-03-10 14:30 | disposition home or self-care (01) | DRG 313 ==

== ENCOUNTER 2018-09-03 10:05 | Emergency (ER) | payer MEDICARE, OTHER ==
[~2018-09-03] VITALS: Ht 172.7 cm; Wt 88.7 kg
[~2018-09-03 10:05] MED LIST changes: -ACET500C5 PO; -ALBU8.5H3 INH; -ASPI81TA3 PO; +ATOR-2 PO; -ATOR40TA68 PO; -AZIT250T94 PO; -BENA10TA48 PO; +BENA20TA4 PO; -BENZ100C70 PO; -BUPR300T48 PO; -CETI10CA PO; -CIPR500T4 PO; +FENO134C PO; -FENO67CA PO; +GABA300C16 PO; -GENT5DRO28 RIGHT EYE; -HYDR-902 PO; -ISOS10TA2 PO; -LORA10TA3 PO; -METF1000 PO; +METO-429 PO; -METO-448 PO; +SITA1TAB5 PO; -TAMS-14 PO
[2018-09-03 10:13] VITALS: BP 161/104; PULSE 70; RESP 20; Ht 172.7 cm; Wt 88.7 kg
[2018-09-03] MEDS ORDERED: ACETAMINOPHEN 500 MG TAB PO STA (11:10)
[2018-09-03] MEDS ORDERED: ACET500C5 PO (11:45)
--- NOTE | 2018-09-03 13:39 | ERD ---
ER Documentation Chief Complaint Chief Complaint Complains of back pain x 3 dys HPI 58-year-old male presents with lower back pain which started 5 days ago. Patient denies any history of trauma and states that his back started hurting when he woke up. Patient states that he has some limited range of motion of the back, but is ambulatory. States that he has had some urgency incontinence for the past year, proceeding and a history of back pain. Denies saddle numbness, pain worse at night or when supine, weight loss, night sweats, fatigue, focal neurological defecits, recent bacterial infection, IV drug use, or immunosuppres juan pablo. History of umbilical hernia, coronary artery disease. Allergic to ibuprofen. Denies surgeries. Denies ETOH, drug, or tobacco use. ROS All systems reviewed and are negative except as per history of present illness. Medications Home Meds Active Scripts Acetaminophen* (Tylophen*) 500 Mg Capsule, 1 CAP PO Q6H PRN for PAIN AND OR ELEVATED TEMP, #30 CAP 0 Refills Prov:VLADIMIR MARINO 09/03/18 Reported Medications Nitroglycerin* (Nitroglycerin* SL) 0.4 Mg Tab.subl, 0.4 MG SL Q5MIN PRN for CHEST PAIN, BOTTLE 03/09/18 Sitagliptin Phos/Metformin HCl (Janumet 50-1,000 mg Tablet) 1 Each Tablet, 1 EACH PO BID, TAB 03/09/18 Metoprolol Tartrate* (Lopressor*) 50 Mg Tab, 50 MG PO BID, #60 TAB 03/09/18 Benazepril Hcl* (Benazepril Hcl*) 20 Mg Tablet, 20 MG PO DAILY, #30 TAB 03/09/18 Atorvastatin* (Atorvastatin*) 80 Mg Tablet, 80 MG PO QHS, #30 TAB 03/09/18 Gabapentin* (Gabapentin*) 300 Mg Capsule, 300 MG PO BID, #60 CAP 03/09/18 Fenofibrate, Micronized (Fenofibrate) 134 Mg Capsule, 134 MG PO DAILY, CAP 03/09/18 Allergies Allergies: Coded Allergies: ibuprofen (Verified Allergy, Unknown, 03/09/18) PMhx/Soc History of Surgery: Yes (stent placement, umblical hernia repair ) Anesthesia Reaction: No Hx Neurological Disorder: No Hx Respiratory Disorders: Yes (bronchitis) Hx Cardiac Disorders: Yes ([place] incident stent placement) Hx Psychiatric Problems: Yes (anxiety and depression) Hx Miscellaneous Medical Probl: No Hx Alcohol Use: No Hx Substance Use: No Hx Tobacco Use: No Smoking Status: Never smoker FmHx Family History: No diabetes, No coronary disease, No other Physical Exam Vitals Vital Signs Date Temp Pulse Resp B/P (MAP) Pulse Ox O2 O2 Flow FiO2 Time Delivery Rate 09/03/18 98.6 70 20 161/104 99 10:13 (123) Physical Exam Const: No acute distress Resp: Clear to auscultation bilaterally Cardio: Regular rate and rhythm, no murmurs Back: Limited flexion. Midline TTP of lumbar back. No bony deformities or step offs. No masses, ecchymoses, or lesions noted. Extremeties: Intact sensation and 5/5 strength in lower extremities bilaterally. : Non tender, non enlarged, non boggy prostate, with no indurations. Normal rectal sphincter tone. Neuro: No saddle numbness. Psych: Normal Mood and Affect Result Diagram: 09/03/18 1112 09/03/18 1112 Results 24 hrs Laboratory Tests Test 09/03/18 11:12 White Blood Count 6.8 10^3/ul Red Blood Count 4.86 10^6/ul Hemoglobin 16.0 g/dl Hematocrit 45.0 % Mean Corpuscular Volume 92.6 fl Mean Corpuscular Hemoglobin 32.9 pg Mean Corpuscular Hemoglobin Concent 35.6 g/dl Red Cell Distribution Width 12.5 % Platelet Count 227 10^3/UL Mean Platelet Volume 9.6 fl Immature Granulocytes % 0.400 % Neutrophils % 62.0 % Lymphocytes % 25.3 % Monocytes % 9.3 % Eosinophils % 2.1 % Basophils % 0.9 % Nucleated Red Blood Cells % 0.0 /100WBC Immature Granulocytes # 0.030 10^3/ul Neutrophils # 4.2 10^3/ul Lymphocytes # 1.7 10^3/ul Monocytes # 0.6 10^3/ul Eosinophils # 0.1 10^3/ul Basophils # 0.1 10^3/ul Nucleated Red Blood Cells # 0.0 10^3/ul Urine Color YELLOW Urine Clarity CLEAR Urine pH 5.0 Urine Specific [place] 1.021 Urine Ketones NEGATIVE mg/dL Urine Nitrite NEGATIVE mg/dL Urine Bilirubin NEGATIVE mg/dL Urine Urobilinogen 1+ mg/dL Urine Leukocyte Esterase NEGATIVE Annemarie/ul Urine Hemoglobin NEGATIVE mg/dL Urine Glucose NEGATIVE mg/dL Urine Total Protein NEGATIVE mg/dl Sodium Level 139 mmol/L Potassium Level 4.8 mmol/L Chloride Level 103 mmol/L Carbon Dioxide Level 28 mmol/L Anion Gap 8 Blood Urea Nitrogen 13 mg/dl Creatinine 0.96 mg/dl Est Glomerular Filtrat Rate mL/min > 60 mL/min Glucose Level 157 mg/dl Calcium Level 9.5 mg/dl Total Bilirubin 0.6 mg/dl Direct Bilirubin 0.00 mg/dl Indirect Bilirubin 0.6 mg/dl Aspartate Amino Transf (AST/SGOT) 29 IU/L Alanine Aminotransferase (ALT/SGPT) 31 IU/L Alkaline Phosphatase 81 IU/L Total Protein 7.4 g/dl Albumin 4.4 g/dl Globulin 3.00 g/dl Albumin/Globulin Ratio 1.46 Current Medications Medications Dose Sig/Chong Start Time Status Last (Trade) Ordered Route PRN Stop Time Admin Dose Reason Admin 1,000 mg ONCE STAT 09/03/18 DC 09/03/18 Acetaminophen PO 11:10 11:31 (Tylenol 09/03/18 Tab) 11:13 Procedures/MDM DIAGNOSTIC IMAGING REPORT Patient: SOLEDAD HICKS : 1960 Age: 58 Sex: M MR #: [id number] DOS: 09/03/18 0000 Ordering MD: VLADIMIR MARINO Location: [facility] Room/Bed: PROCEDURE: CT LUMBAR SPINE WITHOUT CONTRAST CLINICAL INDICATION: Lower back pain and incontinence TECHNIQUE: CT scan of the lumbar spine was performed on a multi -slice scanner. No IV contrast was administered. Coronal and sagittal reformatted images were obtained from the axial source images. The total exam DLP equals 573.92 mGy-cm. The CDTI volume was 22.38 mGy. One or more of the following dose reduction techniques were used: - Automated exposure control. - Adjustment of the mA and/or kV according to patient size . - Use of iterative reconstruction technique. Images were reviewed on a high-resolution PACS workstation. COMPARISON: CT 06/30/2017. FINDINGS: Diminutive ribs at T12. Mild right curvature of the lumbar spine. No acute fracture identified. Chronic bilateral L5 pars interarticularis defects. There is a 1.2 cm lytic lesion in the left iliac bone with central sclerosis and overall fat attenuation, present on prior CT representing benign fibro osseous lesion. 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 SI joints demonstrate hypertrophic change with bridging osteophytes anteriorly. Findings at specific disc levels: T12-L1: Borderline mild disc height loss and anterior osteophyte formation. Schmorl's node formation. Minimal facet hypertrophy. No significant spinal canal stenosis or neural foraminal narrowing. L1-L2: Disc height is maintained. Schmorl's node formation. Anterior osteophyte formation. Mild facet hypertrophy. Small annular bulge without significant spinal canal stenosis or neural foraminal narrowing. L2-L3: Less than 2 mm retrolisthesis. Disc height is maintained. Schmorl's node formation. Mild facet hypertrophy. Anterior osteophyte formation. Disc osteophyte complex with mild right neural foraminal narrowing. No definite spinal canal stenosis. L3-L4: 2 mm retrolisthesis. Disc height is maintained. Anterior osteophyte formation. Mild Schmorl's node formation. Mild facet hypertrophy and ligamentum flavum infolding. Broad-based disc bulge with likely mild effacement of the subarticular recesses and borderline mild spinal canal stenosis. Mild bilateral neural foraminal narrowing. L4-L5: Moderate left-sided disc height loss and anterior osteophyte formation. Mild to moderate facet hypertrophy and ligamentum flavum infolding disc osteophyte complex with prominent osteophytic ridging in the left foraminal zone along with facet hypertrophy results in moderate to severe left neural foraminal narrowing. Mild to moderate right neural foraminal narrowing. No significant spinal canal stenosis. L5-S1: 5.5 mm anterolisthesis. Mild to moderate disc height loss and anterior osteophyte formation. Bilateral L5 spondylolysis. Moderate facet arthropathy. Uncovering of the disc/disc osteophyte complex with at least moderate bilateral neural foraminal narrowing. No significant spinal canal stenosis. IMPRESSION: 1. No acute fracture. Multilevel degenerative disc and facet disease and mild right curvature of the lower lumbar spine. 2. 5.5 mm anterolisthesis at L5-S1, chronic bilateral L5 spondylolysis, mo derate facet arthropathy and disc osteophyte complex with at least moderate bilateral neural foraminal narrowing. 3. Mild to moderate facet arthropathy at L4-L5, disc osteophyte complex with prominent osteophytic ridging in the left foraminal zone with moderate to severe left and mild to moderate right neural foraminal narrowing. 4. Borderline mild spinal canal stenosis at L3-L4 and mild bilateral neural foraminal narrowing. 5. Less than 2 mm retrolisthesis at L2-L4. 6. Redemonstration of 1.2 cm left iliac lytic lesion may represent a benign fibro osseous lesion, similar to prior. 7. Additional findings as above. RPTAT: VV Physician Niko Date Time Electronically viewed and signed by Physician Niko on 09/03/2018 13:18 RG/ CC: VLADIMIR MARINO [id number] ER Course: UA, CBC, CMP: All WNL. Lumbar CT showed degenerative disc changes. Tylenol PO MDM: 58-year-old male presents with lower back pain which started 5 days ago. Patient denies any history of trauma and states that his back started hurting when he woke up. Patient states that he has some limited range of motion of the back, but is ambulatory. States that he has had some urgency incontinence for the past year, proceeding and a history of back pain. Denies saddle numbness, pain worse at night or when supine, weight loss, night sweats, fatigue, focal neurological deficits, recent bacterial infection, IV drug use, or immunosuppression. I have low suspicion for cauda equina since patient lacks saddle numbness, has normal rectal tone on physical exam, has normal lower extremity strength, and his urge incontinence preceded his back pain by a year. Lumbar CT confirmed degenerative joint disease of back without any signs of fracture. Patient advised to follow up with ortho and given medication for pain. Patient discharged with strict ER precautions. Patient advised to follow up with PMD. All questions answered at discharge. Departure Diagnosis: Primary Impression: Back pain Back pain location: low back pain Chronicity: acute Back pain laterality: midline Sciatica presence: without sciatica Qualified Codes: M54.5 - Low back pain Condition: Stable Patient Instructions: Back Pain (Acute Or Chronic) Referrals: [facility] YOU HAVE RECEIVED A MEDICAL SCREENING EXAM AND THE RESULTS INDICATE THAT YOU DO NOT HAVE A CONDITION THAT REQUIRES URGENT TREATMENT IN THE EMERGENCY DEPARTMENT. FURTHER EVALUATION AND TREATMENT OF YOUR CONDITION CAN WAIT UNTIL YOU ARE SEEN IN YOUR DOCTORS OFFICE WITHIN THE NEXT 1-2 DAYS. IT IS YOUR RESPONSIBILITY TO MAKE AN APPOINTMENT FOR FOLOW-UP CARE. IF YOU HAVE A PRIMARY DOCTOR --you should call your primary doctor and schedule an appointment IF YOU DO NOT HAVE A PRIMARY DOCTOR YOU CAN CALL OUR PHYSICIAN REFERRAL HOTLINE AT IF YOU CAN NOT AFFORD TO SEE A PHYSICIAN YOU CAN CHOSE FROM THE FOLLOWING [facility] [address] [facility]. [facility] [address] [facility] [facility] [address] [facility] [facility] [address] [facility] [facility] [address] [facility] [facility]. [address] Additional Instructions: FOLLOW UP WITH YOUR PRIMARY CARE PHYSICIAN TOMORROW.Return to this facility if you are not improving as expected. VLADIMIR MARINO Sep 03, 2018 13:39
== END 2018-09-03 13:54 | disposition home or self-care (01) ==
LOC: FTE 10:05
DX: M54.5 Low back pain (principal); I25.2 Old myocardial infarction; Z79.84 Long term (current) use of oral hypoglycemic drugs; Z98.61 Coronary angioplasty status
CPT/HCPCS: 72131; 80053; 81003; 85025

== ENCOUNTER 2018-12-22 10:03 | Emergency (ER) | payer MEDICARE, OTHER ==
[~2018-12-22] VITALS: Ht 170.2 cm; Wt 85.4 kg
[~2018-12-22 10:03] MED LIST changes: +ACET500C5 PO
[2018-12-22 10:13] VITALS: Ht 170.2 cm; Wt 85.4 kg
[2018-12-22] MEDS ORDERED: ONDANSETRON 4 MG INJ IV STA (10:27)
[2018-12-22] MEDS ORDERED: morphine 4 MG/ML VIAL IV STA (10:27)
[2018-12-22] MEDS ORDERED: SOD CHLORIDE 0.9% 1,000 ML IV STA (10:27)
[2018-12-22] MEDS ORDERED: ASPI-903 PO (11:30)
[2018-12-22] MEDS ORDERED: SITA1TAB5 PO (11:30)
[2018-12-22] MEDS ORDERED: ATOR-2 PO (11:30)
[2018-12-22] MEDS ORDERED: METO-429 PO (11:31)
[2018-12-22] MEDS ORDERED: GABA300C16 PO (11:31)
[2018-12-22] MEDS ORDERED: BUPR300T4 PO (11:32)
[2018-12-22] MEDS ORDERED: HYDR50TA15 PO (11:32)
[2018-12-22] MEDS ORDERED: BENA20TA4 PO (11:32)
[2018-12-22] MEDS ORDERED: CHOL200073 PO (11:33)
[2018-12-22] MEDS ORDERED: MULT-896 PO (11:34)
[2018-12-22] MEDS ORDERED: ONDA4TAB14 PO (12:09)
[2018-12-22] MEDS ORDERED: HYDR-3980 PO (12:09)
[2018-12-22] MEDS ORDERED: NALO4SPR NS (12:12)
[2018-12-22 12:17] VITALS: BP 143/87; PULSE 87; RESP 20
--- NOTE | 2018-12-22 13:02 | ERD ---
ER Documentation Chief Complaint Chief Complaint PT with lower AP pain R to B flank since yesterday, with diarrhea. HPI Patient is a 58-year-old male with coronary disease, hypertension, diabetes who presents with abdominal pain. The patient has abdominal pain and diarrhea and feels "bloated". The pain is in the bilateral abdomen. It radiates to his bilateral flanks. He said that his penis feels funny and he has body aches. He started on Friday with the symptoms. The symptoms come and go. He has had no fevers. Upon review of old medical records this is the patient's 12 visit to the ER since 2014. His primary doctor is Dr. Cyr. ROS All systems reviewed and are negative except as per history of present illness. Medications Home Meds Active Scripts Naloxone HCl nasal spray (Narcan 4 mg/0.1 mL nasal) 4 Mg Funk, 4 MG NS .Q2-3MIN for OPIOID OVERDOSE, #2 SPRAY 0 Refills Funk 0.1 mL into one nostril. Repeat with second device into other nostril after 2-3 minutes if no or minimal response Prov:SO ANDINO MD 12/22/18 Ondansetron (Ondansetron Odt) 4 Mg Tab.rapdis, 4 MG PO Q6H PRN for NAUSEA AND/OR VOMITING, #10 TAB Prov:SO ANDINO MD 12/22/18 Hydrocodone/Acetaminophen ([place] 10-325 Tablet) 1 Each Tablet, 1 TAB PO Q6H PRN for PAIN, #7 TAB Prov:SO ANDINO MD 12/22/18 Reported Medications Multivit-Min/FA/Lycopen/Lutein (Centrum Silver Men Tablet) 1 Each Tablet, 1 EACH PO DAILY, TAB 12/22/18 Cholecalciferol (Vitamin D3) (VITAMIN D-3) 2,000 Unit Capsule, 2000 UNIT PO DAILY, CAP 12/22/18 Hydroxyzine Hcl* (Hydroxyzine Hcl*) 50 Mg Tablet, 50 MG PO BID PRN for ITCHING, #30 TAB 12/22/18 Bupropion Hcl* (Bupropion XL*) 300 Mg Tab.sr.24h, 300 MG PO DAILY, TAB.SA 12/22/18 Benazepril Hcl* (Benazepril Hcl*) 20 Mg Tablet, 20 MG PO DAILY, #30 TAB 12/22/18 Gabapentin* (Gabapentin*) 300 Mg Capsule, 300 MG PO BID, #60 CAP 12/22/18 Metoprolol Tartrate* (Lopressor*) 50 Mg Tab, 50 MG PO BID, #60 TAB 12/22/18 Aspirin* (Aspirin* Chew) 81 Mg Tab.chew, 81 MG PO DAILY, TAB.CHEW 12/22/18 Atorvastatin* (Atorvastatin*) 80 Mg Tablet, 80 MG PO QHS, #30 TAB 12/22/18 Sitagliptin Phos/Metformin HCl (Janumet 50-1,000 mg Tablet) 1 Each Tablet, 1 EACH PO BID, TAB 12/22/18 Discontinued Reported Medications Nitroglycerin* (Nitroglycerin* SL) 0.4 Mg Tab.subl, 0.4 MG SL Q5MIN PRN for CHEST PAIN, BOTTLE 03/09/18 Sitagliptin Phos/Metformin HCl (Janumet 50-1,000 mg Tablet) 1 Each Tablet, 1 EACH PO BID, TAB 03/09/18 Metoprolol Tartrate* (Lopressor*) 50 Mg Tab, 50 MG PO BID, #60 TAB 03/09/18 Benazepril Hcl* (Benazepril Hcl*) 20 Mg Tablet, 20 MG PO DAILY, #30 TAB 03/09/18 Atorvastatin* (Atorvastatin*) 80 Mg Tablet, 80 MG PO QHS, #30 TAB 03/09/18 Gabapentin* (Gabapentin*) 300 Mg Capsule, 300 MG PO BID, #60 CAP 03/09/18 Fenofibrate, Micronized (Fenofibrate) 134 Mg Capsule, 134 MG PO DAILY, CAP 03/09/18 Discontinued Scripts Acetaminophen* (Tylophen*) 500 Mg Capsule, 1 CAP PO Q6H PRN for PAIN AND OR ELEVATED TEMP, #30 CAP 0 Refills Prov:VLADIMIR MARINO 09/03/18 Allergies Allergies: Coded Allergies: ibuprofen (Verified Allergy, Unknown, 12/22/18) PMhx/Soc History of Surgery: Yes (stent placement, umblical hernia repair ) Anesthesia Reaction: No Hx Neurological Disorder: No Hx Respiratory Disorders: Yes (bronchitis) Hx Cardiac Disorders: Yes ([place] incident stent placement 2012) Hx Psychiatric Problems: Yes (anxiety and depression) Hx Miscellaneous Medical Probl: No Hx Alcohol Use: Yes (On occassion) Hx Substance Use: No Hx Tobacco Use: No Smoking Status: Never smoker FmHx Family History: diabetes Physical Exam Vitals Vital Signs Date Temp Pulse Resp B/P (MAP) Pulse Ox O2 O2 Flow FiO2 Time Delivery Rate 12/22/18 87 20 143/87 99 Room Air 12:17 (105) 12/22/18 97.6 70 16 138/86 96 10:13 (103) Physical Exam Const: No acute distress Head: Atraumatic Eyes: Normal Conjunctiva ENT: Normal External Ears, Nose and Mouth. Neck: Full range of motion. No meningismus. Resp: Clear to auscultation bilaterally Cardio: Regular rate and rhythm, no murmurs Abd: Diffuse tenderness to palpation without rebound or guarding Skin: No petechiae or rashes Back: No midline or flank tenderness Ext: No cyanosis, or edema Neur: Awake and alert : Uncircumcised penis without lesions, no testicular swelling or pain Result Diagram: 12/22/18 1035 12/22/18 1035 Results 24 hrs Laboratory Tests Test 12/22/18 10:35 12/22/18 10:38 White Blood Count 6.9 10^3/ul Red Blood Count 4.67 10^6/ul Hemoglobin 15.3 g/dl Hematocrit 43.8 % Mean Corpuscular Volume 93.8 fl Mean Corpuscular Hemoglobin 32.8 pg Mean Corpuscular Hemoglobin Concent 34.9 g/dl Red Cell Distribution Width 13.0 % Platelet Count 167 10^3/UL Mean Platelet Volume 9.6 fl Immature Granulocytes % 0.700 % Neutrophils % 69.2 % Lymphocytes % 18.2 % Monocytes % 9.4 % Eosinophils % 1.6 % Basophils % 0.9 % Nucleated Red Blood Cells % 0.0 /100WBC Immature Granulocytes # 0.050 10^3/ul Neutrophils # 4.8 10^3/ul Lymphocytes # 1.3 10^3/ul Monocytes # 0.7 10^3/ul Eosinophils # 0.1 10^3/ul Basophils # 0.1 10^3/ul Nucleated Red Blood Cells # 0.0 10^3/ul Sodium Level 140 mmol/L Potassium Level 4.6 mmol/L Chloride Level 105 mmol/L Carbon Dioxide Level 25 mmol/L Anion Gap 10 Blood Urea Nitrogen 13 mg/dl Creatinine 0.84 mg/dl Est Glomerular Filtrat Rate mL/min > 60 mL/min Glucose Level 107 mg/dl Calcium Level 10.1 mg/dl Total Bilirubin 0.8 mg/dl Direct Bilirubin 0.00 mg/dl Indirect Bilirubin 0.8 mg/dl Aspartate Amino Transf (AST/SGOT) 20 IU/L Alanine Aminotransferase (ALT/SGPT) 19 IU/L Alkaline Phosphatase 65 IU/L Total Protein 7.3 g/dl Albumin 4.3 g/dl Globulin 3.00 g/dl Albumin/Globulin Ratio 1.43 Lipase 108 U/L Urine Color JOVITA Urine Clarity CLEAR Urine pH 5.0 Urine Specific [place] 1.027 Urine Ketones TRACE mg/dL Urine Nitrite NEGATIVE mg/dL Urine Bilirubin NEGATIVE mg/dL Urine Urobilinogen NEGATIVE mg/dL Urine Leukocyte Esterase NEGATIVE Annemarie/ul Urine Microscopic RBC 94 /HPF Urine Microscopic WBC 5 /HPF Urine Mucus FEW /HPF Urine Hemoglobin 2+ mg/dL Urine Glucose NEGATIVE mg/dL Urine Total Protein NEGATIVE mg/dl Current Medications Medications Dose Sig/Chong Start Time Status Last (Trade) Ordered Route PRN Stop Time Admin Dose Reason Admin Sodium 1,000 ml @ Q1H STAT 12/22/18 DC 12/22/18 Chloride 1,000 mls/hr IV 10:27 10:43 12/22/18 11:26 Morphine 4 mg ONCE STAT 12/22/18 DC 12/22/18 Sulfate IV 10:27 10:44 (morphine) 12/22/18 10:28 Ondansetron 4 mg ONCE STAT 12/22/18 DC 12/22/18 HCl (Zofran IV 10:27 10:44 Inj) 12/22/18 10:28 Procedures/MDM CT abdomen pelvis read by radiology. Ultrasound read by radiology. Patient is a 58-year-old male presents with diffuse abdominal pain. Laboratory studies are basically normal. CT scan and ultrasound are negative for surgical process. At this point I doubt cholecystitis, pancreatitis, appendicitis, or bowel obstruction. The patient will need to follow-up closely with his primary doctor within 24-48 hours. The patient can return sooner for any worsening symptoms. Departure Diagnosis: Primary Impression: Abdominal pain Abdominal location: generalized Qualified Codes: R10.84 - Generalized abdominal pain Condition: Fair Patient Instructions: Abdominal Pain Referrals: Dr. Cyr Additional Instructions: Call your primary care doctor TOMORROW for an appointment during the next 1-2 days.See the doctor sooner or return here if your condition worsens before your appointment time. SO ANDINO MD Dec 22, 2018 13:02
== END 2018-12-22 12:47 | disposition home or self-care (01) ==
LOC: E/R 10:03
DX: R10.84 Generalized abdominal pain (principal); I10 Essential (primary) hypertension; E11.9 Type 2 diabetes mellitus without complications; I25.2 Old myocardial infarction; Z79.82 Long term (current) use of aspirin; Z79.84 Long term (current) use of oral hypoglycemic drugs; Z98.61 Coronary angioplasty status
CPT/HCPCS: 36415; 74176; 76705; 80053; 81001; 83690; 85025; 93005; 96374; 96375; 99285; J2270; J2405; J7030

== ENCOUNTER 2019-04-26 09:42 | Emergency (ER) | payer BC, OTHER ==
[~2019-04-26] VITALS: Ht 172.7 cm; Wt 79.7 kg
[~2019-04-26 09:42] MED LIST changes: -ACET500C5 PO; +ASPI-903 PO; +BUPR300T4 PO; +CHOL200073 PO; -FENO134C PO; +HYDR-3980 PO; +HYDR50TA15 PO; +MULT-896 PO; +NALO4SPR NS; -NITR0.4T32 SL; +ONDA4TAB14 PO
[2019-04-26 09:50] VITALS: BP 150/80; PULSE 81; RESP 17; Ht 172.7 cm; Wt 79.7 kg
== END 2019-04-26 11:23 | disposition home or self-care (01) ==
LOC: FTE 09:42
DX: M19.90 Unspecified osteoarthritis, unspecified site (principal); I25.2 Old myocardial infarction; Z79.82 Long term (current) use of aspirin; Z79.84 Long term (current) use of oral hypoglycemic drugs; Z98.61 Coronary angioplasty status
CPT/HCPCS: 99283